=== PATIENT | female | born 1985 | race Hispanic/Latino ===

== ENCOUNTER 2019-08-16 12:00 | Inpatient (IN) | payer BC ==
[~2019-08-16] VITALS: Ht 151.1 cm; Wt 92.5 kg
[~2019-08-16 12:00] MED LIST: ACET1TAB12 PO; DOCU240C80 PO; IBUP-1493 PO; PREN-66 PO
[2019-08-21] MEDS ORDERED: CALDOLOR 800MG+NS 250ML 250 ML IV PRN (06:15)
[2019-08-21] MEDS ORDERED: LACTATED RINGERS 1000ML 1,000 ML IV SCH (06:15)
[2019-08-21] MEDS ORDERED: CEFAZOLIN SODIUM 1 GM VIAL IVP PRN (06:15)
[2019-08-21 06:41] LABS: HEMATOCRIT 34.4 % (36-48); MEAN CORPUSCULAR HEMOGLOBIN 24.9 pg (27.0-33.0); MEAN CORPUSCULAR VOLUME 77.8 fL (79-99); PLATELET COUNT (AUTO) 196 K/uL (130-400); RED BLOOD CELL COUNT(AUTO) 4.42 MIL/uL (4.00-5.50); RED CELL DISTRIBUTION WIDTH 13.1 % (11.0-15.5)
[2019-08-21 06:57] LABS: APPEARANCE,URINE Cloudy (CLEAR); BILIRUBIN,URINE Negative (NEGATIVE); COLOR,URINE Yellow (YELLOW); GLUCOSE, URINE (UA) Negative (NEGATIVE); KETONES,URINE Negative (NEGATIVE); LEUKOCYTE ESTERASE ,URINE Moderate (NEGATIVE); NITRATE,URINE Negative (NEGATIVE); OCCULT BLOOD,URINE Negative (NEGATIVE); PH,URINE 7.5 (5.0-8.0); PROTEIN,URINE Negative (NEGATIVE)
[2019-08-21 07:09] LABS: BACTERIA,URINE Few /HPF (None Seen); RBC,URINE 0-1 /HPF (0-1); SQUAMOUS EPITHELIAL CELL,UR Moderate /HPF (0-2)
[2019-08-21] MEDS ORDERED: OXYTOCIN-LR 20 UNITS/1000 ML 1,000 ML IV SCH (07:30)
[2019-08-21] MEDS ORDERED: OXYTOCIN-LR 20 UNITS/1000 ML 2,000 ML IV ONE (07:39)
[2019-08-21] MEDS ORDERED: EPHEDRINE SULFATE 50 MG/ML AMPULE ONE ×2 (09:50→10:37)
[2019-08-21] MEDS ORDERED: OXYTOCIN 10 USP UNITS/ML ONE (09:50)
[2019-08-21] MEDS ORDERED: DEXAMETHASONE SOD PHOSPHATE 10MG/ML 1ML VIAL ONE (09:50)
[2019-08-21] MEDS ORDERED: DURAMORPH PF1 MG/ML 10ML AMP IV ONE (09:51)
[2019-08-21] MEDS ORDERED: ONDANSETRON HCL 4 MG/2 ML VIAL ONE (09:51)
[2019-08-21] MEDS ORDERED: BISACODYL 10 MG SUPP.RECT RC PRN (11:30)
[2019-08-21] MEDS ORDERED: IBUPROFEN 600 MG TABLET PO PRN (11:30)
[2019-08-21] MEDS ORDERED: PROMETHAZINE HCL 25 MG/ML 1ML AMPULE IM PRN (11:30)
[2019-08-21] MEDS ORDERED: LANOLIN 30GM OINTMENT TP PRN (11:30)
[2019-08-21] MEDS ORDERED: ACETAMINOPHEN-CODEINE 300/30MG TAB PO PRN (11:30)
[2019-08-21] MEDS ORDERED: HYDROCODONE/ACETAMINOPHEN 5/325 MG TAB PO PRN (11:30)
[2019-08-21] MEDS ORDERED: MEPERIDINE-PF 75 MG/ML SYG IM PRN (11:30)
[2019-08-21] MEDS ORDERED: SODIUM CHLORIDE 0.9% 10 ML VIAL IVP PRN (11:30)
[2019-08-21] MEDS ORDERED: OXYTOCIN-LR 20 UNITS/1000 ML 1,000 ML IV PRN (11:30)
[2019-08-21] MEDS ORDERED: ACETAMINOPHEN EXTRA STRENGTH 500 MG TABLET PO PRN (11:30)
[2019-08-21 12:56] VITALS: BP 136/80
[2019-08-21 16:44] VITALS: BP 137/78
[2019-08-21] MEDS: CEFAZOLIN 3GM /D5W 100ML 100 ML IV SCH (18:39)
[2019-08-21 19:27] VITALS: BP 96/62
[2019-08-21] MEDS: CALDOLOR 800MG+NS 250ML 250 ML IV SCH (19:38)
[2019-08-21] MEDS: DEXTROSE 5 %-0.45 % NACL 1,000 ML IV PRN (19:49)
[2019-08-21] MEDS: SIMETHICONE 80 MG TAB.CHEW PO PRN (21:14)
[2019-08-21] MEDS: DOCUSATE SODIUM 100 MG CAP PO SCH (21:15)
[2019-08-21 23:17] VITALS: BP 111/59
[2019-08-22] MEDS ORDERED: CEFAZOLIN SODIUM 1 GM VIAL ONE ×3 (02:03→02:04)
[2019-08-22] MEDS: CEFAZOLIN 3GM /D5W 100ML 100 ML IV SCH (02:23)
--- NOTE | 2019-08-22 02:23 | NUR ---
Ancef; Ancef bag number 2 per report was scheduled at 0200 1 gm of Ancef x 3 vials a total of 3 gm was mixed in 100 ml of 0.9 % of Sodium Chloride IVPB hung.
[2019-08-22] MEDS: CALDOLOR 800MG+NS 250ML 250 ML IV SCH (03:33)
[2019-08-22 03:43] VITALS: BP 112/58
[2019-08-22] MEDS: DEXTROSE 5 %-0.45 % NACL 1,000 ML IV PRN (04:56)
--- NOTE | 2019-08-22 06:45 | NUR ---
Raysa Landry Catheter taken out, Patient advice to call if needed. She verbalizes understanding.
[2019-08-22 06:50] LABS: HEMATOCRIT 28.1 % (36-48); MEAN CORPUSCULAR HEMOGLOBIN 25.4 pg (27.0-33.0); MEAN CORPUSCULAR HGB CONC 31.7 g/dL (32.0-36.0); MEAN CORPUSCULAR VOLUME 80.1 fL (79-99); RED BLOOD CELL COUNT(AUTO) 3.51 MIL/uL (4.00-5.50); RED CELL DISTRIBUTION WIDTH 13.2 % (11.0-15.5); WHITE BLOOD COUNT (AUTO) 11.1 K/uL (4.8-10.8)
[2019-08-22 07:40] VITALS: BP 102/58
[2019-08-22] MEDS ORDERED: DIPH,PERTUSS(ACELL),TET VAC/PF 0.5 ML VIAL IM ONE (09:39)
[2019-08-22] MEDS: DOCUSATE SODIUM 100 MG CAP PO SCH (09:41)
[2019-08-22] MEDS: SIMETHICONE 80 MG TAB.CHEW PO PRN (09:41)
[2019-08-22 11:23] VITALS: BP 106/55
[2019-08-22] MEDS ORDERED: IBUPROFEN 800 MG TAB PO SCH (11:30)
--- NOTE | 2019-08-22 15:17 | NUR ---
DISCHARGE PT LEFT UNIT VIA WHEELCHAIR, WITH BABY IN ARMS, ACCOMPANIED BY SIGNIFICANT OTHER. DENIED PAIN AND HAD NO COMPLAINTS. BABY STRAPPED IN CAR SEAT. PT AND BABY TRANSPORTED BY PERSONAL VEHICLE.
[2019-08-24 08:34] LABS: HEPATITIS Bs ANTIGEN SCREEN P SEE SEPARATE REPORT (Negative)
== END 2019-08-22 15:17 | disposition home or self-care (01) | DRG 786 ==
LOC: EDSTATUS 12:00 → LDH 08-21 05:46 → WSH 08-21 14:07
PROC: 3E0234Z Introduction of Serum, Toxoid and Vaccine into Muscle, Percutaneous Approach (ICD-10-PCS; 2019-08-21)
PROC: 10D00Z1 Extraction of Products of Conception, Low, Open Approach (ICD-10-PCS; principal; 2019-08-21 08:30)
DX: O34.212 Maternal care for vertical scar from previous cesarean delivery (principal); O34.33 Maternal care for cervical incompetence, third trimester; O69.1XX0 Labor and delivery complicated by cord around neck, with compression, not applicable or unspecified; Z37.0 Single live birth; Z23 Encounter for immunization; Z3A.37 37 weeks gestation of pregnancy
CPT/HCPCS: 36415; 59510; 81001; 85027; 86592; 86850; 86900; 86901; 87088; 87340; 90715; A4344; G0378; J0690; J1100; J1741; J2274; J2405; J2590; J3490; J7120; U0003